=== PATIENT | male | born 1935 | race Caucasian/White ===

== ENCOUNTER → 2018-05-15 | Outpatient (CLI) | payer OTHER, BC | LOC: FIMAGING 15:11 | PROVIDERS: ATTEND Orthopaedic Surgery | DX: M17.12 Unilateral primary osteoarthritis, left knee (principal) ==

== ENCOUNTER 2018-05-28 05:48 | Inpatient (IN) | payer OTHER, BC ==
[2018-05-28] MEDS ORDERED: TRANEXAMIC ACID 3,000 MG in NS (SYRINGE) 50 ML IRR ONE (06:00)
[2018-05-28] MEDS ORDERED: ROPIVACAINE 0.2% 80 MG, EPINEPHrine 0.2 MG, KETOROLAC TROMETHAMINE 30 MG in SYRINGE 0 ML IU ONE (06:00)
[2018-05-28] MEDS ORDERED: DEXAMETHASONE 4 MG/ML VIAL IVP ONE (06:07)
[2018-05-28] MEDS ORDERED: ceFAZolin 2 GM/DEXTROSE 100 ML IV ONE (06:07)
[2018-05-28] MEDS ORDERED: FAMOTIDINE 20 MG TAB PO ONE (06:07)
[2018-05-28] MEDS ORDERED: ACETAMINOPHEN 325 MG TAB PO ONE (06:07)
--- NOTE | 2018-05-28 06:18 | PDHPUP ---
History & Physical Update H&P update statement: This history and physical update is based on an assessment of the patient which was completed after admission or registration (within 24 hours), but prior to the surgery/procedure. H&P update: H&P reviewed & patient examined, no change in patient's condition since H&P completed
[2018-05-28] MEDS ORDERED: LR 1,000 ML IV ONE (06:19)
[2018-05-28] MEDS ORDERED: LIDOCAINE 1% 2 ML INJ ID PRN (06:19)
[2018-05-28] MEDS ORDERED: TRANEXAMIC ACID 3,000 MG/50 ML BAG IRR ONE (06:25)
--- NOTE | 2018-05-28 06:55 | PDANEPAE ---
ANE Past Medical History - Cardiovascular History Hx Hypertension: No Hx Arrhythmias: No Hx Chest Pain: No Hx Coronary Artery / Peripheral Vascular Disease: No Hx CHF / Valvular Disease: No Hx Palpitations: No Cardiovascular History Comment: RUNS LOW BP - Pulmonary History Hx COPD: No Hx Asthma/Reactive Airway Disease: No Hx Recent Upper Respiratory Infection: No Hx Oxygen in Use at Home: No Hx Sleep Apnea: No Sleep Apnea Screening Result - Last Documented: Negative - Neurologic History Hx Cerebrovascular Accident: No Hx Seizures: No Hx Dementia: No - Endocrine History Hx Diabetes: No Hypothyroid: Yes Endocrine History Comment: HYPOTHYROID - Renal History Hx Renal Disorders: No - Liver History Hx Hepatic Disorders: No - Neurological & Psychiatric Hx Hx Neurological and Psychiatric Disorders: No - Cancer History Hx Cancer: Yes Cancer History Comment: SKIN LESIONS REMOVED - Congenital Disorder History Hx Congenital Disorders: No - GI History Hx Gastrointestinal Disorders: No - Other Health History Other Health History: NEG - Chronic Pain History Chronic Pain: Yes (L KNEE) - Surgical History Prior Surgeries: LUMBAR SPINE SURG. APPENDECTOMY ANE Review of Systems Review of Systems: - Exercise capacity METS (RN): 4 METS ANE Patient History - Allergies Allergies/Adverse Reactions: codeine Allergy (Verified 05/13/18 11:28) Vomiting morphine Allergy (Verified 05/13/18 11:28) Vomiting - Home Medications Home Medications: C/E/Zn/Cu/OM3/DHA/EPA/LUT/ZEAX [Preservision Areds 2 Softgel] 1 each PO BID [Last Taken 05/14/18] Herbals/Supplements -Info Only 1 ea PO DAILY 05/13/18 [Last Taken 05/14/18] Hydrochlorothiazide [HCTZ (*)] 12.5 mg PO DAILY 05/13/18 [Last Taken 05/28/18 05 :30] Levothyroxine [Synthroid 125 mcg (*)] 125 mcg PO DAILY06 05/13/18 [Last Taken 05:30] - NPO status NPO Since - Liquids (Date): 05/28/18 NPO Since - Liquids (Time): 05:30 NPO Since - Solids (Date): 05/27/18 NPO Since - Solids (Time): 21:00 - Smoking Hx Smoking Status: Former smoker ANE Labs/Vital Signs - Vital Signs Height: 177.8 cm Weight: 77.111 kg ANE Physical Exam - ASA Status ASA Status: II ANE Anesthesia Plan Anesthesia Plan: spinal Regional Anesthesia: adductor canal FNB
[2018-05-28] MEDS ORDERED: fentaNYL 100 MCG/2 ML INJ ONE (07:00)
[2018-05-28] MEDS ORDERED: MIDAZOLAM 2 MG/2 ML VIAL ONE (07:00)
[2018-05-28] MEDS ORDERED: BUPIVACAINE/DEXTROSE 7.5MG/ML 2 ML SPINAL AMP SP ONE (07:01)
[2018-05-28] MEDS ORDERED: ROPIVACAINE HCL 150 MG/30 ML INJ ONE (07:01)
[2018-05-28] MEDS ORDERED: PROPOFOL/EMULSION 500 MG/50 ML BOTTLE IV ONE (07:01)
[2018-05-28] MEDS ORDERED: PHENYLEPHRINE HCL 100 MCG/ML SYR ONE (07:26)
[2018-05-28] MEDS ORDERED: ePHEDrine SULFATE 25 MG/5 ML SYR ONE (07:30)
--- NOTE | 2018-05-28 08:42 | POSTOPPROG ---
Post Op Note Date of Operation: 05/28/18 Surgeon: Ilsa Mays Form Setter [employer] Forms: thanh Russell PA-C and Kayla Mays PA-C Anesthesiologist: dr. paredes Anesthesia: Spinal, Other (Specify) (adductor canal block) Pre-op Diagnosis: left knee OA Post-op Diagnosis: same Indication: left knee pain Procedure: L TKA robot assisted Findings: severe knee OA Inf/Abcess present in the surg proc area at time of surgery?: No EBL: 50-100
[2018-05-28] MEDS ORDERED: ONDANSETRON DISINTEGRATING 4 MG TAB PO PRN (08:44)
[2018-05-28] MEDS ORDERED: POLYETHYLENE GLYCOL 3350 17 GM PKT PO PRN (08:44)
[2018-05-28] MEDS ORDERED: diphenhydrAMINE 25 MG CAP PO PRN (08:44)
[2018-05-28] MEDS ORDERED: ONDANSETRON 4 MG/2 ML VIAL IVP PRN ×2 (08:44→08:47)
[2018-05-28] MEDS ORDERED: CYCLOBENZAPRINE 10 MG TAB PO PRN (08:44)
[2018-05-28] MEDS ORDERED: BISACODYL 10 MG SUPP PR PRN (08:44)
[2018-05-28] MEDS ORDERED: TEMAZEPAM 15 MG CAP PO PRN (08:44)
[2018-05-28] MEDS ORDERED: MAGNESIUM HYDROXIDE 30 ML UDCUP PO PRN (08:44)
[2018-05-28] MEDS ORDERED: DIPHENOXYLATE/ATROPINE LOMOTIL 1 TAB PO PRN (08:44)
[2018-05-28] MEDS ORDERED: METOCLOPRAMIDE 10 MG/2 ML VIAL IVP PRN ×2 (08:44→08:47)
[2018-05-28] MEDS ORDERED: LACTULOSE 20 GM/30 ML UDCUP PO PRN (08:44)
[2018-05-28] MEDS ORDERED: PROMETHAZINE HCL 25 MG/ML INJ IVP PRN ×2 (08:44→08:47)
[2018-05-28] MEDS ORDERED: PROMETHAZINE HCL 25 MG SUPPR PR PRN (08:44)
[2018-05-28] MEDS ORDERED: oxyCODONE IR 5 MG TAB PO PRN ×2 (08:44→08:47)
[2018-05-28] MEDS ORDERED: LR 500 ML IV PRN (08:47)
[2018-05-28] MEDS ORDERED: fentaNYL 100 MCG/2 ML INJ IVP PRN (08:47)
[2018-05-28] MEDS ORDERED: PHENYLEPHRINE HCL 100 MCG/ML SYR IVP PRN (08:47)
[2018-05-28] MEDS ORDERED: NALOXONE HCL 0.4 MG/ML INJ IVP PRN (08:47)
--- NOTE | 2018-05-28 08:49 | POSTANESTH ---
Post Anesthetic Evaluation Cardiovascular Status: Normal, Stable Respiratory Status: Normal, Stable Level of Consciousness/Mental Status: Can Participate in Eval Pain Control: Adequate, Prn Tx Ordered Nausea/Vomiting Control: Adequate, Prn Tx Ordered Complications Possibly Related to Anesthesia: None Noted
[2018-05-28] MEDS ORDERED: LR 1,000 ML IV SCH (09:00)
[2018-05-28] MEDS: SENNOSIDES/DOCUSATE SODIUM TAB PO SCH ×2 (09:55→20:46)
--- NOTE | 2018-05-28 12:44 | PDMN ---
Medical Necessity Medical necessity: Pt meets IP criteria per PA; est los >2 mn s/p L TKA (cpt 41001); comorbid advanced age, CAD, hx nausea w/morphine, concern for pain management & hypothyroid; per order 05/28/18
[2018-05-28] MEDS: ACETAMINOPHEN 325 MG TAB PO SCH ×2 (15:02→20:46)
[2018-05-28] MEDS: ceFAZolin 2 GM/DEXTROSE 100 ML IV SCH ×2 (15:02→23:44)
[2018-05-28] MEDS: FAMOTIDINE 20 MG TAB PO SCH (20:46)
[2018-05-28] MEDS: ASPIRIN 81 MG CHEWABLE TAB PO SCH (20:46)
--- NOTE | 2018-05-29 02:49 | GOP ---
[f rep st] OPERATIVE REPORT DATE OF OPERATION: 05/28/2018 SURGEON: Ubaldo Mays MD NEUROSURGEON: Ilsa Mays MD. DECKHAND SHRIMP BOAT: Eulalia Russell PA-C. ANESTHESIA: Spinal. PREOPERATIVE DIAGNOSIS: Left knee osteoarthritis. POSTOPERATIVE DIAGNOSIS: Left knee osteoarthritis. PROCEDURE PERFORMED: Left total knee arthroplasty with computer navigation, robotic assist. FINDINGS: ESTIMATED BLOOD LOSS: 30 cc. INDICATIONS: The patient is an 83-year-old male with severe and progressive pain and deformity of th e left knee unresponsive to conservative care. The risks and benefits of surgical intervention were explained in detail. DESCRIPTION OF PROCEDURE: The patient was brought to the operative room and placed on the table in t he supine position. Spinal anesthesia was induced without difficulty. A pneumatic tourniquet was appl ied about the left proximal thigh, and the leg was prepped and draped in a sterile fashion. The leg h older was applied. After exsanguination by elevation the tourniquet was inflated to 250 mmHg. Incision was made anterior medial from the tibial tuberosity to a point 2 cm proximal to the superior pole of the patella. Medial parapatellar arthrotomy was carried out from the superior pole of the pa tella and posteriorly in line with the fibers of the Type II VMO. 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 The medial collateral ligament was elevated and the infrapatellar fat pa d was resected. The patella was everted and the articular surface was excised. A 38 mm patellar button was placed. Attention was turned first to the distal aspect of the femur. After exposure of the femur, 2 half pi ns were placed for fixation of the femoral array. In a similar fashion, 2 pins were placed anteromed ial on the tibia for fixation of the tibial array. External land marking and registration of the hip center was performed without difficulty. Internal femoral and tibial registration was carried out w ithout difficulty and the femoral and tibial checkpoints were placed and verified for accuracy. Attention was turned to the femur. The foot print for the size 4 femoral component was cut with the saw using the Re.nooble robotic system and verified for accuracy against the CT based plan. In a similar f ashion, the saw was used to cut the footprint for the size 5 tibial component using the Re.nooble system an d verified for accuracy against the CT based plan. The tibial articular surface was excised without d ifficulty, followed by the intercondylar box cut. The knee was extended and the remnants of the medial and lateral meniscus were excised. The posterior capsule was injected with ropivacaine, epinephrine and Toradol. A size tibial tray was positioned. Trial reduction was then carried out. There was excellent range of motion, alignment, and stability u sing the 5 x 9 mm polyethylene. All trials were then removed. The joint was thoroughly irrigated and carefully dried. The press-fit c omponents were implanted. The permanent 5 x 9 mm polyethylene was placed without difficulty. The tourniquet was deflated and all bleeders were coagulated. The wound was thoroughly irrigated and closed using interrupted sutures of 2-0 Vicryl for the joint capsule. The subcu was closed with 3-0 V icryl and the skin with 4-0 Monocryl. Dermabond and Steri-Strips were applied followed by a compress gino dressing. The patient was then moved from the operating room to the recovery room in good conditi on, having tolerated the procedure well. /[id number]/MODL
[2018-05-29] MEDS: ACETAMINOPHEN 325 MG TAB PO SCH ×2 (04:03→08:31)
[2018-05-29] MEDS ORDERED: LEVOTHYROXINE 125 MCG TAB PO SCH (06:00)
[2018-05-29 07:41] VITALS: BP 115/65
[2018-05-29] MEDS: SENNOSIDES/DOCUSATE SODIUM TAB PO SCH (08:30)
[2018-05-29] MEDS: FAMOTIDINE 20 MG TAB PO SCH (08:31)
[2018-05-29] MEDS: ASPIRIN 81 MG CHEWABLE TAB PO SCH (08:31)
--- NOTE | 2018-05-29 09:17 | SOAPPROG ---
SOAP Progress Note Assessment/Plan: Assessment: Patient is doing well POD 1 s/p L TKA Pain management: pain is well controlled on oral pain meds. VTE ppx: recommend aspirin 81 mg BID for 4 weeks, cont TRACIE and SCDs Anemia: level is expected initially postop. Asymptomatic. Continue to monitor D/c planning: Patient has done better than anticipated and would like to be discharged to home today. Patient must be released from PT before discharge to home. Plan: 05/29/18 09:16 Subjective: Lakhwinder is doing well today, denies SOB, chest pain and N/V Objective: Vital Signs Temp Pulse Resp BP Pulse Ox 36.6 C 60 20 115/65 93 05/29/18 07:40 05/29/18 07:40 05/29/18 07:40 05/29/18 07:40 05/29/18 07:40 Laboratory Results 05/29/18 04:24 05/29/18 04:24 05/28/18 05/29/18 05/30/18 05:59 05:59 05:59 Intake Total 2224 Output Total 1750 Balance 474 LLE: incision dressing is clean and dry, NVI, +pf/df ICD10 Worksheet Patient Problems: Problems Problem Status Onset Primary localized osteoarthritis of left knee Acute
--- NOTE | 2018-05-29 10:00 | GDS ---
[f rep st] DISCHARGE SUMMARY ADMISSION DIAGNOSIS: Left knee osteoarthritis. DISCHARGE DIAGNOSIS: Left knee osteoarthritis. PROCEDURE: Left total knee arthroplasty, robotic assisted. VTE PROPHYLAXIS: Recommend aspirin 81 mg twice a day for 4 weeks. BRIEF DESCRIPTION OF HOSPITAL STAY: Patient was admitted for an elective joint arthroplasty. The pa tient tolerated the procedure well and has passed physical therapy. The patient was given appropriat e antibiotic prophylaxis and venous thromboembolism prophylaxis. The patient's pain was well control led on oral pain medication, patient was holding down food, and had urinated. Decision was made to d ischarge the patient. The patient was given post-operative prescriptions pre-operatively. PLAN: To follow up with Dr. Mays at [facility] in 3 weeks. /[id number]/MODL
--- NOTE | 2018-05-29 11:26 | ASMTLACE ---
LACE Length of stay for Answers: 2 days current admission Acuity / Level of Answers: Yes Care: Did the patient have an inpatient admission? Comorbidities - select Answers: Opioid dependence all that apply / Chronic pain Other Notes: Hypothyroid # of Emergency department Answers: 0 visits in the last 6 months Score: 10 Date Signed: 05/29/2018 11:26 AM Electronically Signed By:VIRGILIO Lee
[2018-05-30] MEDS ORDERED: HYDROCHLOROTHIAZIDE 12.5 MG CAP PO SCH (09:00)
== END 2018-05-29 12:15 | disposition home or self-care (01) | DRG 470 ==
LOC: F3N 05:48
PROVIDERS: ADMIT Orthopaedic Surgery; ATTEND Orthopaedic Surgery
DX: M17.12 Unilateral primary osteoarthritis, left knee (principal); E03.9 Hypothyroidism, unspecified; Z87.891 Personal history of nicotine dependence
CPT/HCPCS: 97110-GP; 97116-GP; 97161-GP; J0171; J0690; J1100; J1885; J2250; J2370; J2704; J2795; J3010